=== PATIENT | female | born 1960 | race Two or more races ===

== ENCOUNTER 2021-11-18 14:10 | Emergency (ER) | payer MEDICAID ==
[~2021-11-18] VITALS: Ht 154.9 cm; Wt 78.6 kg
--- NOTE | 2021-11-18 14:58 | NUR ---
DR. LLANOS AT BEDSIDE.
[2021-11-18 15:04] LABS: BASOPHILS # (AUTO) 0.1 X10'3 (0-0.2); BASOPHILS % (AUTO) 1.2 % (0-1); EOSINOPHILS # (AUTO) 0.3 X10'3 (0-0.9); HEMATOCRIT 45.7 % (35.0-45.0); HEMOGLOBIN 15.6 g/dl (12.0-16.0); LYMPHOCYTES # (AUTO) 2.9 X10'3 (1.1-4.8); LYMPHOCYTES % (AUTO) 33.6 % (21-51); MEAN CORPUSCULAR HEMOGLOBIN 29.6 PG (27.0-31.0); MEAN CORPUSCULAR VOLUME 87.1 FL (78-98); MEAN PLATELET VOLUME 8.5 FL (7.4-10.4); MONOCYTES # (AUTO) 0.7 X10'3 (0-0.9); MONOCYTES % (AUTO) 7.7 % (2-12); NEUTROPHILS # (AUTO) 4.6 X10'3 (1.8-7.7); NEUTROPHILS % (AUTO) 53.5 % (42-75); PLATELET COUNT 347 X10'3 (140-440); RED BLOOD COUNT 5.25 X10'6 (4.20-5.60); RED CELL DISTRIBUTION WIDTH 13.5 % (11.5-14.5); WHITE BLOOD COUNT 8.6 X10'3 (4.5-11.0)
--- NOTE | 2021-11-18 15:13 | NUR ---
Not calling it a stroke per Dr. Pennington.
--- NOTE | 2021-11-18 15:14 | NUR ---
Spouse at bedside.
[2021-11-18 15:17] LABS: APTT 30 SECONDS (22-32)
--- NOTE | 2021-11-18 15:18 | NUR ---
MRI form faxed to [facility].
[2021-11-18 15:19] LABS: ALANINE AMINOTRANSFERASE 32 U/L (12-78); ALKALINE PHOSPHATASE 91 IU/L (46-116); ANION GAP 7 (8-16); ASPARTATE AMINO TRANSFERASE 23 U/L (10-37); BILIRUBIN,TOTAL 0.5 MG/DL (0.1-1.0); BLOOD UREA NITROGEN 10 MG/DL (7-18); BUN/CREATININE RATIO 13.5 (6.6-38.0); CALCIUM 9.1 MG/DL (8.5-10.1); CHLORIDE 100 MMOL/L (99-107); CREATININE 0.74 MG/DL (0.40-0.90); GLUCOSE 156 MG/DL (70-104); SODIUM 136 MMOL/L (135-145); TOTAL CARBON DIOXIDE 29.1 MMOL/L (24-32); TOTAL PROTEIN 7.9 G/DL (6.4-8.2); eGFR 80 ML/MIN
--- NOTE | 2021-11-18 16:01 | NUR ---
called MRI. Form refaxed.
--- NOTE | 2021-11-18 17:23 | NUR ---
patient back in the room from [facility].
[2021-11-18] MEDS ORDERED: GADOTERATE MEGLUMINE 7.5 MMOL/15 ML VIAL IV ONE (17:59)
[2021-11-18] MEDS ORDERED: dexamethasone sod phosphate 10mg/ml inj IV STA (18:08)
[2021-11-18 21:07] VITALS: BP 166/87
== END 2021-11-19 02:09 | disposition short-term general hospital (02) ==
LOC: ER 14:12
DX: D32.9 Benign neoplasm of meninges, unspecified (principal); Z20.822 Contact with and (suspected) exposure to COVID-19; E78.00 Pure hypercholesterolemia, unspecified; I10 Essential (primary) hypertension; E11.9 Type 2 diabetes mellitus without complications; Z88.0 Allergy status to penicillin; Z79.899 Other long term (current) drug therapy
CPT/HCPCS: 36415; 70450; 70544; 70553; 71045; 80053; 82948; 85025; 85610; 85730; 87811; 93005; 96374; 99285; A9575; J1100

== ENCOUNTER 2022-05-29 13:05 | Emergency (ER) | payer MEDICAID ==
[~2022-05-29] VITALS: Ht 154.9 cm; Wt 68.2 kg
[2022-05-29 13:40] LABS: BASOPHILS # (AUTO) 0.1 X10'3 (0-0.2); BASOPHILS % (AUTO) 0.8 % (0-1); EOSINOPHILS # (AUTO) 0.1 X10'3 (0-0.9); EOSINOPHILS % (AUTO) 0.6 % (0-6); HEMATOCRIT 44.1 % (35.0-45.0); HEMOGLOBIN 14.7 g/dl (12.0-16.0); LYMPHOCYTES # (AUTO) 2.1 X10'3 (1.1-4.8); LYMPHOCYTES % (AUTO) 22.6 % (21-51); MEAN CORPUSCULAR HEMOGLOBIN 29.4 PG (27.0-31.0); MEAN CORPUSCULAR HGB CONC 33.4 g/dL (33.0-36.5); MEAN PLATELET VOLUME 8.2 FL (7.4-10.4); MONOCYTES # (AUTO) 0.4 X10'3 (0-0.9); MONOCYTES % (AUTO) 4.2 % (2-12); NEUTROPHILS # (AUTO) 6.6 X10'3 (1.8-7.7); NEUTROPHILS % (AUTO) 71.8 % (42-75); PLATELET COUNT 364 X10'3 (140-440); RED BLOOD COUNT 5.02 X10'6 (4.20-5.60); RED CELL DISTRIBUTION WIDTH 13.5 % (11.5-14.5); WHITE BLOOD COUNT 9.2 X10'3 (4.5-11.0)
[2022-05-29] MEDS ORDERED: ondansetron/PF 4mg/2ml inj IV ONE ×2 (13:40→16:20)
[2022-05-29] MEDS ORDERED: normal saline 1000ml 1,000 ML IV ONE (13:40)
[2022-05-29] MEDS ORDERED: LORazepam 2 mg/ml vial IV ONE (13:40)
[2022-05-29 13:53] LABS: ALANINE AMINOTRANSFERASE 19 U/L (12-78); ALBUMIN 4.3 G/DL (3.4-5.0); ALBUMIN/GLOBULIN RATIO 1.2 (1.1-1.5); ALKALINE PHOSPHATASE 70 IU/L (46-116); ANION GAP 9 (8-16); ASPARTATE AMINO TRANSFERASE 20 U/L (10-37); BILIRUBIN,TOTAL 0.4 MG/DL (0.1-1.0); BLOOD UREA NITROGEN 14 MG/DL (7-18); BUN/CREATININE RATIO 24.1 (10.0-20.0); CALCIUM 9.5 MG/DL (8.5-10.1); CHLORIDE 100 MMOL/L (99-107); CREATININE 0.58 MG/DL (0.40-0.90); GLUCOSE 193 MG/DL (70-104); POTASSIUM 3.8 MMOL/L (3.5-5.1); SODIUM 135 MMOL/L (135-145); TOTAL CARBON DIOXIDE 26.1 MMOL/L (24-32); eGFR > 90 ML/MIN
[2022-05-29 13:56] VITALS: BP 170/96
[2022-05-29 14:01] LABS: MAGNESIUM 1.9 MG/DL (1.5-2.4)
--- NOTE | 2022-05-29 14:38 | NUR ---
PT SLEEPING. SONS AT BEDSIDE
--- NOTE | 2022-05-29 15:08 | NUR ---
pt off to ct
[2022-05-29] MEDS ORDERED: MECL-159 PO (16:04)
[2022-05-29] MEDS ORDERED: ONDA4TAB12 PO (16:04)
[2022-05-29] MEDS ORDERED: meclizine 12.5mg tablet PO ONE (16:05)
[2022-05-29] MEDS ORDERED: diazepam inj 5 MG/ML inj. IV ONE (16:20)
== END 2022-05-29 18:38 | disposition home or self-care (01) ==
LOC: ER 13:05
DX: R42 Dizziness and giddiness (principal); R11.2 Nausea with vomiting, unspecified; R03.0 Elevated blood-pressure reading, without diagnosis of hypertension; R06.02 Shortness of breath; I10 Essential (primary) hypertension; E78.5 Hyperlipidemia, unspecified; Z86.03 Personal history of neoplasm of uncertain behavior; Z98.890 Other specified postprocedural states
CPT/HCPCS: 36415; 70450; 71045; 80053; 83735; 83880; 84484; 85025; 93005; 96361; 96374; 96375; 96376; 99285; J2060; J2405; J3360; J7030; J8597

== ENCOUNTER 2023-09-06 18:34 | Emergency (ER) | payer MEDICAID ==
[~2023-09-06] VITALS: Ht 157.5 cm; Wt 78.6 kg
[~2023-09-06 18:34] MED LIST: MECL-302 PO; ONDA-243 PO
[2023-09-06] MEDS: bacitracin 15gm ointment TP ONE (20:47)
[2023-09-06 20:59] VITALS: BP 146/83; PULSE 89; RESP 16; TEMP 98; O2SAT 95
== END 2023-09-06 21:01 | disposition home or self-care (01) ==
LOC: ER 18:35
DX: S05.32XA Ocular laceration without prolapse or loss of intraocular tissue, left eye, initial encounter (principal); E78.00 Pure hypercholesterolemia, unspecified; I10 Essential (primary) hypertension; E11.9 Type 2 diabetes mellitus without complications; Z88.0 Allergy status to penicillin; Z79.899 Other long term (current) drug therapy; W18.39XA Other fall on same level, initial encounter; Y93.89 Activity, other specified; Y92.89 Other specified places as the place of occurrence of the external cause; Y99.8 Other external cause status
CPT/HCPCS: 70450; 73030; 99284; J7030; A6449